=== PATIENT | male | born 1955 | race African-American/Black ===

== ENCOUNTER 2017-05-28 12:31 | Emergency (ER) | payer MEDICAID, OTHER ==
[~2017-05-28] VITALS: Ht 180.3 cm; Wt 80.0 kg
[2017-05-28 12:34] VITALS: BP 126/77
[2017-05-28 15:15] LABS: BASOPHILS % 0.6 % (0.0-2.0); CHLORIDE 111 mEq/L (98-107); EOSINOPHILS % 2.7 % (0.0-5.0); HEMATOCRIT. 42.7 % (42.0-52.0); HEMOGLOBIN. 14.4 g/dL (14.0-18.0); LYMPHOCYTES % 24.8 % (20.0-50.0); MEAN CORPUSCULAR HEMOGLOBIN 31.5 pg (28.0-32.0); MEAN CORPUSCULAR VOLUME 93.1 fL (80.0-94.0); MEAN PLATELET VOLUME 8.5 fl (7.4-10.4); MONOCYTES % 7.4 % (2.0-8.0); NEUTROPHILS % 64.5 % (40.0-76.0); PLATELET 235 x1000/uL (130-400); RED BLOOD CELL COUNT 4.59 mill/uL (4.7-6.1); RED CELL DISTRIBUTION WIDTH 13.8 % (11.6-14.6)
[2017-05-28 15:23] LABS: CARBON DIOXIDE 26 mEq/L (21-32)
[2017-05-28 15:25] LABS: *AMPHETAMINES SCREEN URINE NEGATIVE (NEGATIVE); *BARBITURATES SCREEN URINE NEGATIVE (NEGATIVE); *BENZODIAZEPINES SCREEN URINE NEGATIVE (NEGATIVE); *COCAINE SCREEN URINE NEGATIVE (NEGATIVE); CANNABINOID URINE SCREEN NEGATIVE (NEGATIVE); METHADONE URINE SCREEN NEGATIVE (NEGATIVE); OPIATES URINE SCREEN NEGATIVE (NEGATIVE); PHENCYCLIDINE URINE SCREEN NEGATIVE (NEGATIVE)
== END 2017-05-28 16:35 | disposition home or self-care (01) ==
LOC: ER 13:14
DX: L29.9 Pruritus, unspecified (principal)
CPT/HCPCS: 36415; 80053; 80305; 85025; 99284

== ENCOUNTER 2018-04-03 12:15 | Emergency (ER) | payer OTHER ==
[~2018-04-03] VITALS: Ht 182.9 cm; Wt 85.0 kg
[2018-04-03 12:50] VITALS: BP 147/94
[2018-04-03 12:58] LABS: BASOPHILS % 0.9 % (0.0-2.0); EOSINOPHILS % 1.8 % (0.0-5.0); HEMATOCRIT. 38.1 % (42.0-52.0); HEMOGLOBIN. 12.9 g/dL (14.0-18.0); LYMPHOCYTES % 20.4 % (20.0-50.0); MEAN CORPUSCULAR HEMOGLOBIN 31.4 pg (28.0-32.0); MEAN CORPUSCULAR VOLUME 92.6 fL (80.0-94.0); MEAN PLATELET VOLUME 7.7 fl (7.4-10.4); MONOCYTES % 7.1 % (2.0-8.0); NEUTROPHILS % 69.8 % (40.0-76.0); PLATELET 273 x1000/uL (130-400); RED BLOOD CELL COUNT 4.12 mill/uL (4.7-6.1); RED CELL DISTRIBUTION WIDTH 14.4 % (11.6-14.6)
[2018-04-03 13:05] LABS: CHLORIDE 106 mEq/L (98-107)
[2018-04-03 13:06] LABS: INR 1.1; PROTHROMBIN TIME 11.1 sec (9.4-11.6)
[2018-04-03 13:11] LABS: ETHANOL BLOOD < 10 mg/dL
[2018-04-03 13:18] LABS: CLARITY URINE CLEAR (CLEAR); COLOR URINE YELLOW (YELLOW); KETONES URINE 1+ (NEGATIVE); LEUKOCYTE ESTERASE URINE NEGATIVE (NEGATIVE); NITRITE URINE NEGATIVE (NEGATIVE); OCCULT BLOOD URINE NEGATIVE (NEGATIVE); PROTEIN URINE NEGATIVE (NEGATIVE); SPECIFIC GRAVITY URINE 1.014 (1.005-1.030)
[2018-04-03 13:46] LABS: *AMPHETAMINES SCREEN URINE NEGATIVE (NEGATIVE); *BARBITURATES SCREEN URINE NEGATIVE (NEGATIVE); *BENZODIAZEPINES SCREEN URINE NEGATIVE (NEGATIVE); *COCAINE SCREEN URINE NEGATIVE (NEGATIVE); METHADONE URINE SCREEN NEGATIVE (NEGATIVE); OPIATES URINE SCREEN NEGATIVE (NEGATIVE); PHENCYCLIDINE URINE SCREEN NEGATIVE (NEGATIVE)
[2018-04-03 13:47] LABS: CANNABINOID URINE SCREEN NEGATIVE (NEGATIVE)
== END 2018-04-03 13:35 | disposition left against medical advice (07) ==
LOC: ER 12:26
DX: G93.40 Encephalopathy, unspecified (principal); R94.31 Abnormal electrocardiogram [ECG] [EKG]
CPT/HCPCS: 36415; 80053; 80305; 80307; 80329; 81003; 82962; 85025; 85610; 93005; 99285; G0482

== ENCOUNTER 2020-02-03 10:17 | Emergency (ER) | payer SELFPAY ==
[~2020-02-03] VITALS: Ht 180.3 cm; Wt 91.0 kg
[2020-02-03] MEDS ORDERED: PIPERONYL/PYRETHRINS (RID)120 ML SHAMPOO TOP ONE (12:45)
[2020-02-03 13:33] LABS: BASOPHILS % 0.7 % (0.0-2.0); EOSINOPHILS % 10.7 % (0.0-5.0); HEMOGLOBIN. 12.2 g/dL (14.0-18.0); LYMPHOCYTES % 11.5 % (20.0-50.0); MEAN CORPUSCULAR HEMOGLOBIN 31.5 pg (28.0-32.0); MEAN CORPUSCULAR VOLUME 93.4 fL (80.0-94.0); MEAN PLATELET VOLUME 7.8 fl (7.4-10.4); MONOCYTES % 7.8 % (2.0-8.0); NEUTROPHILS % 69.3 % (40.0-76.0); PLATELET 288 x1000/uL (130-400); RED BLOOD CELL COUNT 3.86 mill/uL (4.7-6.1); RED CELL DISTRIBUTION WIDTH 14.2 % (11.6-14.6)
[2020-02-03 13:40] LABS: CHLORIDE 109 mEq/L (98-107)
[2020-02-03 18:33] VITALS: BP 137/87
[2020-02-06] MEDS ORDERED: CEPH-569 MT (10:46)
== END 2020-02-03 19:36 | disposition home or self-care (01) ==
LOC: ER 10:17
DX: M79.672 Pain in left foot (principal); M79.671 Pain in right foot; L03.116 Cellulitis of left lower limb; L03.115 Cellulitis of right lower limb; L03.114 Cellulitis of left upper limb
CPT/HCPCS: 36415; 71045; 80053; 85025; 93005; 93970; 99285

== ENCOUNTER 2020-02-04 08:14 | Inpatient (IN) | payer MEDICAID ==
[~2020-02-04] VITALS: Ht 180.3 cm; Wt 90.7 kg
[2020-02-04] MEDS ORDERED: KETOROLAC 30MG/ML VIAL IV STA (12:48)
[2020-02-04] MEDS ORDERED: AMPICILLIN SOD/SULBACTAM NA 3 G in SODIUM CHLORIDE 0.9% 100 ML IV SCH (13:00)
[2020-02-04] MEDS ORDERED: TETANUS, DIPHTHERIA, PERTUSSIS VAC/PF 0.5ML (>7YR OLD) IM ONE (13:30)
[2020-02-04 14:42] LABS: HEMATOCRIT. 35.5 % (42.0-52.0); HEMOGLOBIN. 12.1 g/dL (14.0-18.0); MEAN CORPUSCULAR VOLUME 93.8 fL (80.0-94.0); MEAN PLATELET VOLUME 8.3 fl (7.4-10.4); PLATELET 289 x1000/uL (130-400); RED BLOOD CELL COUNT 3.79 mill/uL (4.7-6.1); RED CELL DISTRIBUTION WIDTH 14.2 % (11.6-14.6)
[2020-02-04 14:49] LABS: CHLORIDE 110 mEq/L (98-107)
[2020-02-04 15:29] LABS: CLARITY URINE CLEAR (CLEAR); COLOR URINE DARK YELLOW (YELLOW); KETONES URINE NEGATIVE (NEGATIVE); LEUKOCYTE ESTERASE URINE NEGATIVE (NEGATIVE); NITRITE URINE NEGATIVE (NEGATIVE); OCCULT BLOOD URINE NEGATIVE (NEGATIVE); PH URINE 5.5 (4.5-8.0); PROTEIN URINE TRACE (NEGATIVE); SPECIFIC GRAVITY URINE 1.034 (1.005-1.030)
[2020-02-04 15:36] LABS: PLATELET ESTIMATE NORMAL
[2020-02-04 17:20] VITALS: BP 124/70
[2020-02-04 17:40] VITALS: BP 131/72
[2020-02-04 20:00] VITALS: BP 115/60
[2020-02-04] MEDS: VANCOMYCIN 1 G PREMIX 200 ML IV SCH (22:05)
[2020-02-04] MEDS ORDERED: ACETAMINOPHEN 650MG/20.3ML UDC GT PRN ×2 (22:30)
[2020-02-04] MEDS ORDERED: HYDROCODONE/ACETAMINOPHEN 5/325MG TABLET PO PRN (22:30)
[2020-02-04] MEDS ORDERED: CLONIDINE 0.1MG TABLET PO PRN (22:30)
[2020-02-04] MEDS ORDERED: ONDANSETRON HCL 4MG/2ML INJ IV PRN (22:30)
[2020-02-04] MEDS ORDERED: DIPHENHYDRAMINE 50MG/ML VIAL IV PRN (22:30)
[2020-02-04] MEDS ORDERED: ACETAMINOPHEN 650MG SUPP PR PRN ×2 (22:30)
[2020-02-04] MEDS ORDERED: NA PHOS,M-B/NA PHOS,DI-BA ENEMA 118ML PR PRN (22:30)
[2020-02-04] MEDS ORDERED: MAGNESIUM/ALUMINUM HYDROXIDE/SIMETHICONE 30ML UDC PO PRN (22:30)
[2020-02-04] MEDS ORDERED: ACETAMINOPHEN 325MG TABLET PO PRN (22:30)
[2020-02-04] MEDS: ENOXAPARIN 40MG/0.4ML SYR SUBCUT SCH (23:25)
[2020-02-05] VITALS: BP 106/54
[2020-02-05] MEDS: CEFTRIAXONE 1 G PREMIX 50 ML IV SCH ×2 (00:28→21:04)
[2020-02-05 04:00] VITALS: BP 115/62
[2020-02-05 06:01] LABS: CLARITY URINE CLOUDY (CLEAR); COLOR URINE DARK YELLOW (YELLOW); KETONES URINE TRACE (NEGATIVE); LEUKOCYTE ESTERASE URINE NEGATIVE (NEGATIVE); NITRITE URINE NEGATIVE (NEGATIVE); OCCULT BLOOD URINE NEGATIVE (NEGATIVE); PH URINE 5.5 (4.5-8.0); PROTEIN URINE 1+ (NEGATIVE)
[2020-02-05] MEDS: SODIUM CHLORIDE 0.9% INJ 3ML FLUSH IVF SCH ×2 (06:33→21:04)
[2020-02-05 07:10] LABS: *AMPHETAMINES SCREEN URINE NEGATIVE (NEGATIVE)
[2020-02-05 07:11] LABS: *BENZODIAZEPINES SCREEN URINE NEGATIVE (NEGATIVE); *COCAINE SCREEN URINE NEGATIVE (NEGATIVE); METHADONE URINE SCREEN NEGATIVE (NEGATIVE); OPIATES URINE SCREEN NEGATIVE (NEGATIVE); PHENCYCLIDINE URINE SCREEN NEGATIVE (NEGATIVE)
[2020-02-05 07:12] LABS: *BARBITURATES SCREEN URINE NEGATIVE (NEGATIVE)
[2020-02-05 07:14] LABS: CANNABINOID URINE SCREEN NEGATIVE (NEGATIVE)
[2020-02-05 08:00] VITALS: BP 111/56
[2020-02-05 08:38] LABS: HEMATOCRIT. 29.8 % (42.0-52.0); MEAN CORPUSCULAR HEMOGLOBIN 31.5 pg (28.0-32.0); MEAN CORPUSCULAR VOLUME 94.3 fL (80.0-94.0); MEAN PLATELET VOLUME 8.7 fl (7.4-10.4); PLATELET 229 x1000/uL (130-400); RED BLOOD CELL COUNT 3.16 mill/uL (4.7-6.1); RED CELL DISTRIBUTION WIDTH 14.1 % (11.6-14.6)
[2020-02-05 08:44] LABS: CHLORIDE 112 mEq/L (98-107)
[2020-02-05] MEDS: VANCOMYCIN 1 G PREMIX 200 ML IV SCH ×2 (08:52→19:35)
[2020-02-05 08:53] LABS: LDL CHOLESTEROL 51 mg/dL (5-100)
[2020-02-05 08:55] LABS: HDL CHOLESTEROL 48 mg/dL (40-59)
[2020-02-05] MEDS ORDERED: ENOXAPARIN 40MG/0.4ML SYR SUBCUT SCH (09:00)
[2020-02-05 12:00] VITALS: BP 98/51
[2020-02-05 14:21] LABS: PLATELET ESTIMATE NORMAL
[2020-02-05 16:00] VITALS: BP 104/48
[2020-02-05 20:00] VITALS: BP 146/83
[2020-02-05] MEDS: ENOXAPARIN 40MG/0.4ML SYR SUBCUT SCH (21:05)
[2020-02-06] VITALS: BP 124/73
[2020-02-06 04:00] VITALS: BP 126/74
[2020-02-06] MEDS: SODIUM CHLORIDE 0.9% INJ 3ML FLUSH IVF SCH ×3 (06:39→21:17)
[2020-02-06 08:00] VITALS: BP 139/68
[2020-02-06] MEDS: VANCOMYCIN 1 G PREMIX 200 ML IV SCH ×2 (08:49→21:16)
[2020-02-06] MEDS ORDERED: CEPH-569 MT (10:46)
[2020-02-06 12:00] VITALS: BP 139/86
[2020-02-06 16:00] VITALS: BP 136/73
[2020-02-06 20:00] VITALS: BP 140/77
[2020-02-06] MEDS: ENOXAPARIN 40MG/0.4ML SYR SUBCUT SCH (21:17)
[2020-02-07] VITALS: BP 126/69
[2020-02-07 04:00] VITALS: BP 125/70
[2020-02-07 04:41] LABS: CHLORIDE 107 mEq/L (98-107)
[2020-02-07] MEDS: SODIUM CHLORIDE 0.9% INJ 3ML FLUSH IVF SCH ×3 (06:21→20:58)
[2020-02-07 08:00] VITALS: BP 137/79
[2020-02-07] MEDS: VANCOMYCIN 1 G PREMIX 200 ML IV SCH ×2 (08:51→20:57)
[2020-02-07 12:00] VITALS: BP 131/69
[2020-02-07 16:00] VITALS: BP 132/79
[2020-02-07 20:00] VITALS: BP 124/69
[2020-02-07] MEDS: ENOXAPARIN 40MG/0.4ML SYR SUBCUT SCH (20:57)
[2020-02-08] VITALS: BP 115/59
[2020-02-08 04:00] VITALS: BP 116/56
[2020-02-08 08:00] VITALS: BP_SYST 117; BP_SYST 132; BP_DIAS 73; BP_DIAS 78
[2020-02-08] MEDS: VANCOMYCIN 1 G PREMIX 200 ML IV SCH ×2 (09:12→20:30)
[2020-02-08 12:00] VITALS: BP 121/71
[2020-02-08] MEDS: SODIUM CHLORIDE 0.9% INJ 3ML FLUSH IVF SCH ×2 (14:00→21:13)
[2020-02-08 16:00] VITALS: BP 123/71
[2020-02-08] MEDS ORDERED: PIPERONYL/PYRETHRINS (RID)120 ML SHAMPOO TOP NR (16:00)
[2020-02-08 20:00] VITALS: BP 122/72
[2020-02-08] MEDS: ENOXAPARIN 40MG/0.4ML SYR SUBCUT SCH (20:30)
[2020-02-09] VITALS: BP 111/66
[2020-02-09 04:00] VITALS: BP 107/53
[2020-02-09] MEDS: SODIUM CHLORIDE 0.9% INJ 3ML FLUSH IVF SCH (05:13)
[2020-02-09 07:09] LABS: EOSINOPHILS % 14.4 % (0.0-5.0); HEMATOCRIT. 34.1 % (42.0-52.0); HEMOGLOBIN. 11.6 g/dL (14.0-18.0); LYMPHOCYTES % 21.4 % (20.0-50.0); MEAN CORPUSCULAR HEMOGLOBIN 31.6 pg (28.0-32.0); MEAN CORPUSCULAR VOLUME 93.2 fL (80.0-94.0); MEAN PLATELET VOLUME 8.3 fl (7.4-10.4); MONOCYTES % 11.5 % (2.0-8.0); NEUTROPHILS % 51.7 % (40.0-76.0); PLATELET 281 x1000/uL (130-400); RED BLOOD CELL COUNT 3.67 mill/uL (4.7-6.1); RED CELL DISTRIBUTION WIDTH 14.1 % (11.6-14.6)
[2020-02-09 07:14] LABS: CHLORIDE 108 mEq/L (98-107)
[2020-02-09] MEDS: VANCOMYCIN 1 G PREMIX 200 ML IV SCH (09:14)
[2020-02-09 11:04] VITALS: BP 124/70
[2020-02-09 16:00] VITALS: BP 120/86
[2020-02-09 20:00] VITALS: BP 120/66
[2020-02-09] MEDS: ENOXAPARIN 40MG/0.4ML SYR SUBCUT SCH (21:09)
[2020-02-10] VITALS: BP 127/69
[2020-02-10 04:00] VITALS: BP 126/68
[2020-02-10 08:00] VITALS: BP 128/72
[2020-02-10 11:50] VITALS: BP 114/61
[2020-02-10 16:00] VITALS: BP 127/73
[2020-02-10 20:00] VITALS: BP 131/75
[2020-02-10] MEDS: ENOXAPARIN 40MG/0.4ML SYR SUBCUT SCH (20:36)
[2020-02-11] VITALS (7 sets, daily range): BP systolic 103–130; BP diastolic 61–81
[2020-02-11] MEDS: SODIUM CHLORIDE 0.9% INJ 3ML FLUSH IVF SCH ×2 (06:24→14:50)
[2020-02-11] MEDS: ENOXAPARIN 40MG/0.4ML SYR SUBCUT SCH (21:35)
[2020-02-12] VITALS: BP 114/70
[2020-02-12 04:00] VITALS: BP 126/74
[2020-02-12 08:00] VITALS: BP 114/71
[2020-02-12 12:37] VITALS: BP 117/67
[2020-02-12 16:24] VITALS: BP 117/61
[2020-02-12 20:00] VITALS: BP 123/75
[2020-02-12] MEDS: ENOXAPARIN 40MG/0.4ML SYR SUBCUT SCH (20:54)
[2020-02-13] VITALS: BP 112/63
[2020-02-13 04:00] VITALS: BP 129/69
[2020-02-13 08:00] VITALS: BP 116/72
[2020-02-13 12:00] VITALS: BP 112/70
[2020-02-13 16:00] VITALS: BP 121/60
[2020-02-13 20:00] VITALS: BP 152/80
[2020-02-13] MEDS: ENOXAPARIN 40MG/0.4ML SYR SUBCUT SCH (22:35)
[2020-02-14] VITALS: BP 121/77
[2020-02-14 04:00] VITALS: BP 109/53
[2020-02-14 08:00] VITALS: BP 100/61
[2020-02-14 12:00] VITALS: BP 120/68
[2020-02-14] MEDS: SODIUM CHLORIDE 0.9% INJ 3ML FLUSH IVF SCH ×2 (14:00→22:00)
[2020-02-14 16:00] VITALS: BP 113/59
[2020-02-14 20:00] VITALS: BP 107/60
[2020-02-14] MEDS: ENOXAPARIN 40MG/0.4ML SYR SUBCUT SCH (21:29)
[2020-02-15] VITALS: BP 101/59
[2020-02-15 04:00] VITALS: BP 120/64
[2020-02-15] MEDS: SODIUM CHLORIDE 0.9% INJ 3ML FLUSH IVF SCH ×2 (06:00→13:47)
[2020-02-15 08:00] VITALS: BP 115/67
[2020-02-15 12:00] VITALS: BP 110/71
[2020-02-15 16:00] VITALS: BP 122/70
[2020-02-15 20:00] VITALS: BP 126/78
[2020-02-15] MEDS: ENOXAPARIN 40MG/0.4ML SYR SUBCUT SCH (20:56)
[2020-02-16] VITALS: BP 129/74
[2020-02-16 04:00] VITALS: BP 124/75
[2020-02-16 08:00] VITALS: BP 116/76
[2020-02-16 12:00] VITALS: BP 127/77
[2020-02-16] MEDS: SODIUM CHLORIDE 0.9% INJ 3ML FLUSH IVF SCH ×2 (13:39→22:00)
[2020-02-16 16:00] VITALS: BP 132/76
[2020-02-16] MEDS ORDERED: PIPERONYL/PYRETHRINS (RID)120 ML SHAMPOO TOP SCH (16:00)
[2020-02-16] MEDS ORDERED: PERMETHRIN 5% CREAM 60GM TOP NR (17:00)
[2020-02-16 20:00] VITALS: BP 112/71
[2020-02-16] MEDS: ENOXAPARIN 40MG/0.4ML SYR SUBCUT SCH (20:49)
[2020-02-17] VITALS: BP 117/70
[2020-02-17 04:00] VITALS: BP 120/73
[2020-02-17 05:59] LABS: CHLORIDE 109 mEq/L (98-107)
[2020-02-17] MEDS: SODIUM CHLORIDE 0.9% INJ 3ML FLUSH IVF SCH ×4 (06:00→22:00)
[2020-02-17 06:02] LABS: HEMATOCRIT 36.7 % (42.0-52.0); HEMOGLOBIN 12.4 g/dL (14.0-18.0); MEAN CORPUSCULAR HEMOGLOBIN 31.4 pg (28.0-32.0); MEAN CORPUSCULAR VOLUME 93.4 fL (80.0-94.0); PLATELET 321 x1000/uL (130-400); RED BLOOD CELL COUNT 3.93 mill/uL (4.7-6.1); RED CELL DISTRIBUTION WIDTH 13.8 % (11.6-14.6)
[2020-02-17 08:00] VITALS: BP 114/75
[2020-02-17 12:00] VITALS: BP 148/76
[2020-02-17 16:00] VITALS: BP 116/72
[2020-02-17 20:00] VITALS: BP 120/72
[2020-02-17] MEDS: ENOXAPARIN 40MG/0.4ML SYR SUBCUT SCH (20:27)
[2020-02-18] VITALS: BP 115/72
[2020-02-18 04:00] VITALS: BP 111/67
[2020-02-18] MEDS: SODIUM CHLORIDE 0.9% INJ 3ML FLUSH IVF SCH ×4 (06:00→21:12)
[2020-02-18 08:00] VITALS: BP 118/74
[2020-02-18 12:00] VITALS: BP 120/78
[2020-02-18 16:00] VITALS: BP 119/80
[2020-02-18 20:00] VITALS: BP 131/74
[2020-02-18] MEDS: ENOXAPARIN 40MG/0.4ML SYR SUBCUT SCH (21:11)
[2020-02-19] VITALS: BP 118/62
[2020-02-19 04:00] VITALS: BP_SYST 105; BP_SYST 114; BP_DIAS 69; BP_DIAS 74
[2020-02-19] MEDS: SODIUM CHLORIDE 0.9% INJ 3ML FLUSH IVF SCH (06:00)
[2020-02-19 08:00] VITALS: BP 124/76
[2020-02-19 12:00] VITALS: BP 112/64
[2020-02-19 16:00] VITALS: BP 115/72
[2020-02-19 20:00] VITALS: BP 101/59
[2020-02-19] MEDS: ENOXAPARIN 40MG/0.4ML SYR SUBCUT SCH (21:56)
[2020-02-20] VITALS: BP 100/51
[2020-02-20 04:00] VITALS: BP 107/63
[2020-02-20 08:00] VITALS: BP 113/55
[2020-02-20 12:00] VITALS: BP 117/74
[2020-02-20] MEDS: SODIUM CHLORIDE 0.9% INJ 3ML FLUSH IVF SCH ×2 (14:00→21:31)
[2020-02-20 16:00] VITALS: BP 165/76
[2020-02-20 20:00] VITALS: BP 117/46
[2020-02-20] MEDS: ENOXAPARIN 40MG/0.4ML SYR SUBCUT SCH (21:31)
[2020-02-21] VITALS: BP 107/57
[2020-02-21 08:00] VITALS: BP 107/61
[2020-02-21 10:50] VITALS: BP 111/84
== END 2020-02-21 11:32 | disposition home or self-care (01) | DRG 383 ==
LOC: ER 08:14 → 6EST 15:13 → ENRESERV 15:51
PROVIDERS: ADMIT Family Medicine; ATTEND Family Medicine
DX: L03.115 Cellulitis of right lower limb (principal); E66.01 Morbid (severe) obesity due to excess calories; B85.2 Pediculosis, unspecified; D64.9 Anemia, unspecified; I87.8 Other specified disorders of veins; R26.89 Other abnormalities of gait and mobility; L03.116 Cellulitis of left lower limb; Z59.0 Homelessness; Z68.27 Body mass index [BMI] 27.0-27.9, adult; Z87.891 Personal history of nicotine dependence
CPT/HCPCS: 36415; 71045; 80048; 80053; 80061; 80202; 80305; 81003; 85025; 85027; 90715; 97116; 97162; 99285; J0295; J0696; J1650; J1885; J3370; J7050